=== PATIENT | female | born 1945 | race Caucasian/White ===

== ENCOUNTER 2019-05-06 11:23 | Inpatient (IN) | payer MEDICARE, BC ==
[~2019-05-06 11:23] MED LIST: Dexamethasone 20 MG/5 ML VIAL ONE; Glycopyrrolate 0.2 MG/ML 5 ML SYRINGE ONE; Lidocaine 1% PF 5 ML VIAL ONE; Ondansetron PF 4 MG/2 ML Vial ONE; Rocuronium Bromide 10 MG/ML (10ML VIAL) ONE; Ropivacaine 0.5% HCl/PF (150 MG/30 ML VIAL) ONE; ePHEDrine/0.9% NaCl/PF SYRINGE 50 mg/10 ml ONE
--- NOTE | 2019-05-06 12:24 | RAD ---
AP view of the pelvis INDICATION: Fall with left hip injury COMPARISON: None. FINDINGS: Bones: There is a displaced subcapital left femoral neck fracture. The femoral head fracture componen t is displaced inferiorly and posteriorly relative to the proximal left femoral metaphysis. No additional fractures evident. Hips: There is moderate degenerative arthrosis of the right and left hip. SI joints and symphysis pubis: Normal appearing. Intrapelvic contents: There are moderate vascular calcifications seen involving the visualized vascul ature. IMPRESSION: Displaced subcapital left femoral neck fracture.
--- NOTE | 2019-05-06 12:25 | RAD ---
XR Hip Lt 2-3 View 05/06/2019 11:53 AM INDICATION: Fall with left pain COMPARISON: None. FINDINGS: There is a displaced left subcapital femoral neck fracture. There is moderate degenerative arthrosis of the left hip. There are moderate vascular calcifications seen involving the visualized vasculature. No additional fracture is evident. IMPRESSION: Displaced left subcapital femoral neck fracture.
--- NOTE | 2019-05-06 12:27 | RAD ---
XR Chest 1 View Portable HISTORY: Preop COMPARISON: None. FINDINGS: Heart size appears borderline enlarged for portable technique. A right-sided Mediport dre ter is present. The lungs are clear of infiltrative process. The bones appear demineralized. IMPRESSION: No active intrathoracic disease.
[2019-05-06 12:35] LABS: INR-International Normal Ratio 1.3; PTT 31.2 SEC (22.9-36.1)
[2019-05-06 12:55] LABS: ALT (SGPT) 7 U/L (8-55); AST (SGOT) 19 U/L (5-34); Albumin 2.4 g/dL (3.4-4.8); Alkaline Phosphatase 65 U/L (40-110); Anion Gap 10 mmol/L (10-20); BUN (Urea Nitrogen) 14 mg/dL (9.8-20.1); Bilirubin, Total 1.1 mg/dL (0.2-1.2); Calc. Creatinine Clearance 0 mL/min (70-130); Calcium 7.8 mg/dL (7.8-10.44); Carbon Dioxide 20 mmol/L (23-31); Chloride 108 mmol/L (98-107); Estimated GFR-MDRD 73; Globulin 3.8 g/dL (2.4-3.5); Glucose 89 mg/dL (83-110); Potassium 4.3 mmol/L (3.5-5.1); Protein, Total 6.2 g/dL (6.0-8.3); Sodium 134 mmol/L (136-145)
[2019-05-06] MEDS ORDERED: Acetaminophen 1,000 MG in Premix Bag 1 BAG IVPB SCH (13:30)
--- NOTE | 2019-05-06 13:41 | CT ---
CT BRAIN NONCONTRAST: DATE: 05/06/2019 HISTORY: 73-year-old female status post head trauma from fall COMPARISON: none FINDINGS: There is an approximately 1 x 2 cm small patch of intra-axial moderate hyperdensity in the left periv entricular white matter broadly abutting the left lateral margin of the left lateral ventricle body. There is no subarachnoid, epidural, or subdural hematoma. No calvarial fracture. No mass effect or mi dline shift. No extra-axial fluid collection. No obstructive hydrocephalus. There are chronic ischemic white matter changes in the cerebral white matter. IMPRESSION: 1) small patchy of intra-axial hyperdensity in the left periventricular white matter. Differential di agnosis is primary LAB NURSE lymphoma versus mild traumatic parenchymal hemorrhage. Primary LAB NURSE lymphoma is slightly favored. 2) recommend MRI of brain with and without contrast.
[2019-05-06] MEDS ORDERED: Neomycin-Polymyxin 1 ML AMP ONE (13:42)
[2019-05-06] MEDS ORDERED: Morphine 2 MG/ML SYRINGE ONE (13:46)
[2019-05-06] MEDS ORDERED: CEFAZOLIN 2 GM in Premix Bag 1 BAG IVPB SCH (14:15)
[2019-05-06] MEDS ORDERED: Dextrose 50% Abboject 50 ML SYRINGE SLOW IVP PRN (14:41)
[2019-05-06] MEDS ORDERED: Ondansetron PF 4 MG/2 ML Vial IVP PRN (14:41)
[2019-05-06] MEDS ORDERED: hydrALAZINE 20 MG/ML VIAL SLOW IVP PRN (14:41)
[2019-05-06] MEDS ORDERED: Morphine 2 MG/ML SYRINGE SLOW IVP PRN (14:41)
[2019-05-06] MEDS ORDERED: Dextrose 5% in Water 1,000 ML IV PRN (14:41)
[2019-05-06 14:42] LABS: Hemoglobin 10.3 g/dL (12.0-16.0); Mean Corpuscular HGB CONC 33.1 g/dL (32.0-36.0); Mean Corpuscular Hemoglobin 34.7 pg (27.0-31.0); Mean Platelet Volume 8.7 fL (7.4-10.4); Platelet Count 115 thou/uL (130-400); RBC Distribution Width 15.3 % (11.5-14.5); Red Blood Cell (RBC) Count 2.97 mill/uL (4.20-5.40); White Blood Cell (WBC) Count 2.6 thou/uL (4.8-10.8)
[2019-05-06] MEDS ORDERED: traMADol HCl 50 MG TAB PO PRN (14:45)
[2019-05-06] MEDS ORDERED: Sodium Chloride 0.9% 1,000 ML IV SCH (14:45)
[2019-05-06 14:53] LABS: Magnesium 1.8 mg/dL (1.6-2.6); Phosphorus 2.2 mg/dL (2.3-4.7)
[2019-05-06] MEDS ORDERED: Sodium Phosphate 30 MMOL in Sodium Chloride 0.9% 250 ML 250 ML IVPB SCH (15:00)
[2019-05-06 15:07] LABS: Band 1 % (5-11); Lymphocytes 12 % (21-51); MDiff Complete? YES; Macrocytosis SLIGHT = 6-15 cells (100X) (0-5/hpf); Monocytes 2 % (0-10); Myelocyte 1 % (0-0); Neutrophil 84 % (42-75); Platelet Morphology Comment Appears Decreased; Polychromasia SLIGHT = 2-3 cells (100X) (0-2/hpf)
[2019-05-06] MEDS ORDERED: Dexamethasone 4 mg/ml Vial ONE (15:16)
[2019-05-06] MEDS ORDERED: Fentanyl 100 MCG/2 ML VIAL ONE ×2 (15:16→15:19)
--- NOTE | 2019-05-06 16:32 | HP ---
TRAUMA SURGEON: Dr. Pereira. CONSULTING PHYSICIANS: Dr. Blood and Dr. Sanders. HISTORY OF PRESENT ILLNESS: The patient is a 73-year-old female, who presented to the emergency department via EMS. Family reports that the patient has had left-sided hip pain and stopped ambulating yesterday. She did have a fall 1 week ago while on Xarelto. She did stop Xarelto 1 to 2 days after the fall and has a history of dementia. The patient complained of left-sided hip pain. She does have a history of ovarian cancer and has been taking oral chemotherapy medications. Since the start of that medication in February, the patient's family reported a significant decline in her mentation. She has also not been eating or drinking well. They did discuss with their oncologist, who stopped the medications last week along with Xarelto. At the time of my evaluation, the patient complained of left hip pain and followed commands very well. She does know her family members, but does not know more complicated questions and does not participate well in conversations. The patient was ambulatory before the fall and started using a walker after the fall, but refused to get up out of bed, starting yesterday. REVIEW OF SYSTEMS: All additional 10-point review of systems negative except as indicated above. PAST MEDICAL HISTORY: Ovarian cancer. PAST SURGICAL HISTORY: Hysterectomy, MediPort placement in the right chest wall, and right knee replacement. SOCIAL HISTORY: The patient does not have a history of tobacco, drug, or alcohol use. She lives at home with her and her daughter is also a media relations coordinator. MEDICATIONS: 1. Fluoxetine. 2. Megestrol. 3. MiraLAX. 4. Ipwy-ntn-wlbnoto Advil. ALLERGIES: NO KNOWN DRUG ALLERGIES. PHYSICAL EXAMINATION: VITAL SIGNS: The patient is afebrile. Hemodynamically stable. Not tachycardic. She is saturating greater than 92% on room air. HEART: She has a regular rate and rhythm on the monitor. PRIMARY SURVEY: Airway intact. Adequate breath sounds bilaterally. 2+ pulses in bilateral radials, femorals, and DPs. GCS is 14, -1 for confusion. This is her baseline. Motor and sensation are intact. No laceration, bruising, or external bleeding. She does have obvious deformity to the left hip. SECONDARY SURVEY: HEAD: Normocephalic and atraumatic. No gross palpable skull deformities or tenderness. EYES: Pupils 3-2, equal, and reactive to light bilaterally. ENT: No hemotympanum. No epistaxis. No septal hematoma. Midface stable to manipulation. No blood in the oropharynx. Dentition is intact. No anterior neck injury/crepitus/tenderness. C-SPINE: No step-offs or deformities. Nontender. C-collar not in place. CHEST: Nontender. No crepitus. No abrasions or ecchymosis. Equal chest movement. Mediport to right chest wall. ABDOMEN: Soft, nontender, and nondistended. PELVIS: Stable to palpation. Nontender. No abrasions or ecchymosis. RECTAL: Deferred. GENITOURINARY: Deferred. EXTREMITIES: Left-sided hip deformity. No abrasions or ecchymosis noted. 2+ pulses in bilateral radials, femorals, and DPs. BACK/SPINE: No step-offs, deformities, or tenderness to palpation of the thoracic or lumbar spine. No abrasions or ecchymosis noted. NEUROLOGIC: Generalized weakness throughout, but equal clinic nurse and plantar flexion and dorsiflexion bilaterally. GCS is 14, -1 for confusion. Gross normal sensation x4 extremities. LABORATORY DATA: White count 2.6, hemoglobin 10.3, hematocrit 31.2, and platelets 115. INR 1.3. Sodium 134, potassium 4.3, chloride 108, bicarb 20, BUN 14, creatinine 0.78, glucose 89, phosphorus 2.2, and magnesium 1.8. DIAGNOSTIC FINDINGS: X-ray of the pelvis demonstrates displaced subcapital left femoral neck fracture. X-ray of the left hip demonstrates displaced left subcapital femoral neck fracture. Chest x-ray demonstrates no acute intrathoracic disease. CT of the brain demonstrates small patchy of intra-axial hyperdensity in the left periventricular white matter. Differential diagnosis is primary MILK HOUSE WORKER lymphoma versus mild traumatic parenchymal hemorrhage. Primary MILK HOUSE WORKER lymphoma is slightly favored. Recommend MRI brain with and without contrast. ASSESSMENT: 1. Status post fall 1 week ago. 2. Acute hyponatremia and hypophosphatemia. 3. Deconditioning. 4. Failure to thrive. 5. Left femoral neck fracture. 6. MILK HOUSE WORKER lymphoma versus traumatic parenchymal hemorrhage. 7. Acute traumatic pain. 8. History of ovarian cancer, recently stopped treatment. PLAN: The patient will be admitted to the Trauma Service and go to the regular nursing floor. Orthopedic Surgery has been consulted and will take the patient to the OR today. Neurosurgery has also been consulted for the CT scan results. They report that there is no acute concern and that the patient should receive MRI either later in the hospital stay or upon postop followup. They also do report that it is okay to start 81 mg aspirin b.i.d. for DVT prophylaxis when appropriate. The patient appears mildly dehydrated and did receive a 500 mL bolus of normal saline in the emergency department. We are also going to complete a UA. Postoperatively, she will work with Physical and Occupational Therapy and will likely need placement at a rehab facility or a [facility]p facility. She receive sodium phosphate replacement. This patient was discussed with Dr. Pereira before this dictation. Job ID: [id number]
--- NOTE | 2019-05-06 17:24 | RAD ---
EXAM: XR Pelvis AP STANDARD PROVIDED CLINICAL HISTORY: Postop COMPARISON: 05/06/2019 FINDINGS: Interval postoperative changes of left hip arthroplasty are demonstrated. Associated soft tissue gas. Cutaneous jermaine are seen. IMPRESSION: As above.
--- NOTE | 2019-05-06 17:24 | RAD ---
EXAM: XR Hip Lt 1 View PROVIDED CLINICAL HISTORY: Postop COMPARISON: 05/06/2019 FINDINGS: Interval postoperative changes of left hip arthroplasty. Associated soft tissue gas. Cutaneous staple s are seen. IMPRESSION: As above.
[2019-05-06] MEDS: Acetaminophen 500 MG TAB PO SCH (19:41)
--- NOTE | 2019-05-06 20:50 | PRG ---
DATE OF SERVICE: 05/06/2019 SUBJECTIVE: This is a 73-year-old female, who sustained a left femoral neck fracture approximately a week ago. The patient is postop earlier today with Dr. Blood for repair. The patient is currently sleeping on the hospital bed in the surgical floor. The patient has not attempted to eat anything postop and has taken a very little fluids. The patient's family members are at bedside. The patient arouses easily to voice. The patient denies any pain at this time. The patient does have a past medical history of dementia. OBJECTIVE: VITAL SIGNS: Stable, afebrile. GENERAL: Elderly female, frail appearing, resting comfortably, no respiratory distress. RESPIRATORY: Equal chest rise and fall, bilateral breath sounds clear, respirations are even and unlabored. ASSESSMENT: 1. Status post fall one week ago. 2. Acute hyponatremia and hypophosphatemia. 3. Deconditioning. 4. Failure to thrive. 5. Left femoral neck fracture status post repair. 6. 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 7. Acute traumatic pain. 8. History of ovarian cancer, recently. Stopped treatment. PLAN: Continue comfort and supportive care. We will replace electrolytes as needed. We will continue to monitor the patient's urinary output. If the patient does not take in fluids or has a decrease in urinary output, we will place the patient on maintenance IV fluids. The patient did receive a normal saline bolus earlier today. We will repeat labs in the morning. We will have the patient work with Physical and Occupational Therapy in the morning. The patient will need placement to a rehab or senior living facility once ready for discharge. Plan was discussed with the patient and family, who agree. Job ID: [id number]
[2019-05-06] MEDS: CEFAZOLIN 2 GM in Premix Bag 1 BAG IVPB SCH (21:20)
[2019-05-06] MEDS: Famotidine/PF 20 mg/2ml Vial SLOW IVP SCH (21:20)
[2019-05-06] MEDS: Senokot S 8.6-50 MG TAB PO SCH (21:21)
[2019-05-06 21:58] VITALS: BMI 24.7
[2019-05-07] MEDS: Acetaminophen 500 MG TAB PO SCH ×5 (00:15→23:00)
[2019-05-07] MEDS: Ibuprofen 200 MG TAB PO SCH ×4 (00:15→19:36)
--- NOTE | 2019-05-07 01:17 | CON ---
DATE OF CONSULTATION: 05/06/2019 HISTORY OF PRESENT ILLNESS: Ms. Rey is a 73-year-old female, who presented to the emergency department for evaluation of left hip pain and decreased mobility after fall that occurred one week ago. Family provides majority of history for this patient. They states that the patient has not been ambulating since the fall. The patient was on Xarelto prior to the fall, however, this has since been stopped. The family also notes that the patient has not been eating or drinking well over the last several days to weeks. The patient has a history of ovarian cancer, for which she was previously taking oral chemotherapy, however, this was stopped because she was having decline in her mentation. The patient has generalized weakness, but no focal neuro deficit aside from not moving her left lower extremity secondary to her left femoral neck fracture. PHYSICAL EXAMINATION: NEUROLOGIC: The patient is awake, alert, and for the most part appropriately respond to questions. The patient intermittently answers questions when asked, with the tendency to do so more when her family repeats the question asked by myself. The patient was unable to state the month, year, or her current location. Cranial nerves 2 through 12 are grossly intact. Pupils are equal, round, and reactive to light. Extraocular movements were intact. The patient exhibits generalized weakness of her upper and lower extremity. She has 4/5 strength throughout her bilateral upper extremity myotomes. She also has 4/5 strength in her right lower extremity. She is able to bend her right knee up without difficulty. I do not test the strength in her left lower extremity due to her left femoral neck fracture. Did note that her left leg was externally rotated. The patient was able to move her toes and foot on the left. The patient appears generally weak and cachetic. Gait was not assessed. IMPRESSION/DIAGNOSES: 1. Status post fall one week ago. 2. On Xarelto, stopped after the fall. 3. Left femoral neck fracture. 4. 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 5. Deconditioning. PLAN: I have discussed this case and imaging with Dr. Sanders. From a neurosurgical standpoint, the patient is clear to proceed with left hip surgery today. Both the Trauma and Orthopedic Teams were notified of this. I spoke with Dr. Blood in the emergency department and let him know that from a neurosurgical standpoint we are fine with the patient having surgery on her hip today. The patient may be placed on 81 mg aspirin postoperatively for DVT prophylaxis. There is no need for neurosurgical intervention at this time. We will follow up with the patient on an outpatient basis in 1 to 2 weeks after she has time to recover from her surgery. At this time, we will complete an MRI of the brain with and without contrast to further evaluate the lesion seen on CT today. When the family was notified of this plan, they requested the patient complete the MRI while she is in the hospital given the fact that they live over an hour away. We will be fine with this plan as long as the patient can tolerate, remaining still for the 45-minute duration of the MRI after she has had surgery. Perhaps over the weekend, the Trauma and Orthopedic Team can determine if the patient will be able to tolerate MRI, or if it will need to be done outpatient. We will defer this decision to Trauma and Orthopedics. Nonetheless, we will follow up with the patient in clinic in the next 1 to 2 weeks. Please call sooner with any questions or concerns. This was a 50-minute initial patient encounter, in which greater than 50% of the time was spent in review of records, imaging, evaluation of the patient, examination, and formulations of plan. The remaining time was spent in counseling and coordination of care. Job ID: [id number]
[2019-05-07] MEDS: CEFAZOLIN 2 GM in Premix Bag 1 BAG IVPB SCH (05:12)
[2019-05-07 05:33] LABS: #Lymphocytes 0.3 thou/uL (1.20-3.40); #Monocytes 0.2 thou/uL (0.11-0.59); #Neutrophils 3.3 thou/uL (1.40-6.50); %Eosinophils 0.2 % (0.0-10.0); %Lymphocytes 7.9 % (21.0-51.0); %Monocytes 5.9 % (0.0-10.0); Hemoglobin 8.4 g/dL (12.0-16.0); Mean Corpuscular HGB CONC 32.5 g/dL (32.0-36.0); Mean Corpuscular Hemoglobin 33.3 pg (27.0-31.0); Mean Platelet Volume 8.9 fL (7.4-10.4); Platelet Count 97 thou/uL (130-400); RBC Distribution Width 15.2 % (11.5-14.5); Red Blood Cell (RBC) Count 2.52 mill/uL (4.20-5.40); White Blood Cell (WBC) Count 3.9 thou/uL (4.8-10.8)
[2019-05-07 06:17] LABS: Anion Gap 12 mmol/L (10-20); BUN (Urea Nitrogen) 18 mg/dL (9.8-20.1); Calc. Creatinine Clearance 62 mL/min (70-130); Calcium 7.9 mg/dL (7.8-10.44); Carbon Dioxide 20 mmol/L (23-31); Chloride 108 mmol/L (98-107); Estimated GFR-MDRD 71; Glucose 127 mg/dL (83-110); Magnesium 1.8 mg/dL (1.6-2.6); Phosphorus 5.5 mg/dL (2.3-4.7); Potassium 4.3 mmol/L (3.5-5.1); Sodium 136 mmol/L (136-145)
[2019-05-07] MEDS ORDERED: Magnesium 2 GM/50 ML 2 GM in Premix Bag 1 BAG IVPB SCH (07:15)
[2019-05-07] MEDS: Polyethylene Glycol 3350 17 GM Packet PO SCH (08:55)
[2019-05-07] MEDS: Famotidine/PF 20 mg/2ml Vial SLOW IVP SCH ×2 (08:55→19:36)
[2019-05-07] MEDS: Senokot S 8.6-50 MG TAB PO SCH ×2 (08:55→19:36)
[2019-05-07] MEDS: FLUoxetine HCl 20 MG CAP PO SCH (08:55)
[2019-05-07] MEDS: Megestrol Acetate 800 MG/20 ML UDCUP PO SCH (08:55)
--- NOTE | 2019-05-07 09:21 | PDOC.GSPN ---
Surgery Progress Note: Subj - Subjective Narrative: Feels good, denies pain. Hasn't been up w PT yet. Eating well. Pleasant and alert, answering questions appropriately.Mental status at baseline per sister. Surgery Progress Note: Obj - Vital signs Vital signs: Vital Signs - Most Recent Temp Pulse Resp BP Pulse Ox 98.5 F 62 18 103/60 95 05/07/19 07:18 05/07/19 07:18 05/07/19 07:18 05/07/19 07:18 05/07/19 07:18 - Physical Exam General: cachectic Neck: no lymphadectomy, no masses, trachea midline Cardiovascular: regular rate and rhythm, no murmur Respiratory: clear to auscultation, normal expansion, normal respiratory effort Abdomen: soft, non tender, nondistended (OR dressings in place. No LE rotation. No edema, normal pedal pulses, 4/5 foot dorsiflexion/plantarflexion bilaterally , nl sensation to light touch) Surgery Progress Note: Results - Labs Result Diagrams: 05/07/19 05:01 05/07/19 05:01 Lab results: Laboratory Results - last 24 hr 05/07/19 05/07/19 05:01 05:01 WBC 3.9 L RBC 2.52 L Hgb 8.4 L Hct 25.8 L MCV 102.0 H MCH 33.3 H MCHC 32.5 RDW 15.2 H Plt Count 97 L MPV 8.9 Neutrophils % 86.0 H Neutrophils % (Manual) Not Reportable Lymphocytes % 7.9 L Monocytes % 5.9 Eosinophils % 0.2 Basophils % 0.0 Neutrophils # 3.3 Lymphocytes # 0.3 L Monocytes # 0.2 Eosinophils # 0.0 Basophils # 0.0 Sodium 136 Potassium 4.3 Chloride 108 H Carbon Dioxide 20 L Anion Gap 12 BUN 18 Creatinine 0.80 Estimated GFR (MDRD) 71 Glucose 127 H Calcium 7.9 Phosphorus 5.5 H Magnesium 1.8 Surgery Progress Note: A/P - Plan Plan: Doing well status post ORIF left femoral neck fracture. Awaiting PT, rehab/ placement plan. Pt lives w , w other family memebers nearby; family tentatively plans short stay at [facility] for rehab before returning home w . Renal function stable. Decreased H/H consistent w post-op state and likely pre- existing anemia related to ovarian cancer and cachexia. No new traumatic injuries identified. Continue current management.
[2019-05-07 09:24] LABS: Bilirubin Negative (Negative); Blood, Urine 2+ (Negative); Clarity Clear (Clear); Glucose, Urine (Dipstick) Normal (Negative); Leukocyte 500 Leu/uL (Negative); Nitrite Negative (Negative); Protein, Urine (Dipstick) 30 mg/dL (Neg-Trace); Urobilinogen 3 mg/dL (Less than 2); WBC/HPF Greater than 50 HPF (0-3)
[2019-05-07 09:26] LABS: Bacteria/HPF 1+ HPF (None Seen)
--- NOTE | 2019-05-07 10:13 | PRG ---
DATE OF SERVICE: 05/07/2019 Ms. Rey is a 73-year-old woman, admitted for hip fracture, who underwent fixation yesterday. She was also found to have hyperdensity in the region of the left figueredo radiata and periventricular region. It is difficult to know what this is, maybe lymphoma. Nevertheless, we will get an MRI of the brain without and with contrast. She otherwise is neurologically intact. The MRI will be done during her hospital tenure here. Job ID: [id number]
--- NOTE | 2019-05-07 14:03 | OP ---
DATE OF PROCEDURE: 05/06/2019 PROCEDURE PERFORMED: Left hip hemiarthroplasty, bipolar. PREOPERATIVE DIAGNOSIS: Left femoral neck fracture. POSTOPERATIVE DIAGNOSIS: Left femoral neck fracture. COMPLICATIONS: None. ESTIMATED BLOOD LOSS: 100 mL. ANESTHESIA: General plus local. SPINNING AND WINDING SUPERVISOR: Michael Rueda PA-C IMPLANTS: DePuy bipolar hemiarthroplasty size 6 Mary Alice stem press-fit, size 45 bipolar head, +8.5 neck length. INDICATIONS FOR PROCEDURE: Ms. Rey is a 73-year-old female, who fell and fractured her left hip. She has been indicated for hemiarthroplasty of the hip to restore the ability to mobilize, promote pain relief, and prevent complications of prolonged bedrest. Risks have been reviewed, which did include dislocation, instability, neurovascular injury, DVT, and others. DESCRIPTION OF PROCEDURE: Ms. Rey was identified in the preoperative holding area. Her correct extremity was marked. She was carried to the operating room. She was positioned supine. General anesthesia was induced. A multidisciplinary time-out was performed. The left lower extremity was prepped and draped in a sterile fashion. We began the procedure by a posterior approach to the hip. We dissected down through the subcutaneous tissues to the fascia, which was opened. We then exposed the short external rotators and capsule of the hip. These were subperiosteally divided from the femur. We then removed the broken femoral head and performed a new osteotomy of the femoral neck. At this point, we cleared the acetabulum off bony fragments. We then prepared the femoral canal. We reamed and broached up to a size 6. This gave a good fit and fill. We trialed off our size 6 stem. A +8.5 length was appropriate for stability. The patient had good range of motion with no instability. We removed the trial components. We then impacted our final components and reduced the hip. We closed the short external rotators and capsule with #5 Ethibond suture. We then closed the fascia and completed a layered closure. A sterile dressing was applied. The patient was taken to recovery room in good condition without complication. Job ID: [id number]
[2019-05-07] MEDS ORDERED: Enoxaparin Sodium 30 MG/0.3 ML SYRINGE SC SCH (21:00)
--- NOTE | 2019-05-07 23:30 | PRG ---
DATE OF SERVICE: SUBJECTIVE: This is a 73-year-old female, who sustained a left femoral neck fracture approximately a week ago. Patient is postop day #1 status post repair. Patient is currently resting comfortably in hospital bed and arouses easily. Patient reports that her pain is well controlled and voices no complaints at this time. OBJECTIVE: VITAL SIGNS: Stable, afebrile. GENERAL: Elderly female, frail appearing, resting comfortably, in no acute distress. RESPIRATORY: Equal chest rise and fall, bilateral breath sounds clear. Respirations are even and nonlabored. ASSESSMENT: 1. Status post fall one week ago. 2. Left femoral neck fracture, postop day 1. 3. Deconditioning. 4. Failure to thrive. 5. Acute traumatic pain. 6. Postop anemia. 7. 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 8. History of ovarian cancer, recently stopped treatment. PLAN: Continue comfort and supportive care. We will place patient on iron and vitamin C due to postop anemia. Continue to have patient work with Physical Therapy. Patient is pending placement to a alf facility. Job ID: [id number]
[2019-05-08] MEDS ORDERED: Sodium Chloride 0.9% 1,000 ML IV SCH (00:01)
[2019-05-08] MEDS: Ibuprofen 200 MG TAB PO SCH (05:50)
[2019-05-08] MEDS: Acetaminophen 500 MG TAB PO SCH ×4 (05:50→23:39)
[2019-05-08 06:01] LABS: #Lymphocytes 0.4 thou/uL (1.20-3.40); #Monocytes 0.2 thou/uL (0.11-0.59); #Neutrophils 2.3 thou/uL (1.40-6.50); %Eosinophils 0.6 % (0.0-10.0); %Lymphocytes 14.7 % (21.0-51.0); %Monocytes 8.2 % (0.0-10.0); %Neutrophils 76.4 % (42.0-75.0); Hemoglobin 8.7 g/dL (12.0-16.0); Mean Corpuscular HGB CONC 32.9 g/dL (32.0-36.0); Mean Platelet Volume 9.6 fL (7.4-10.4); Platelet Count 121 thou/uL (130-400); RBC Distribution Width 15.3 % (11.5-14.5); Red Blood Cell (RBC) Count 2.57 mill/uL (4.20-5.40)
[2019-05-08 06:38] LABS: Anion Gap 10 mmol/L (10-20); BUN (Urea Nitrogen) 31 mg/dL (9.8-20.1); Calc. Creatinine Clearance 37 mL/min (70-130); Calcium 8.2 mg/dL (7.8-10.44); Carbon Dioxide 21 mmol/L (23-31); Chloride 106 mmol/L (98-107); Estimated GFR-MDRD 39; Glucose 103 mg/dL (83-110); Magnesium 2.4 mg/dL (1.6-2.6); Phosphorus 3.7 mg/dL (2.3-4.7); Potassium 4.3 mmol/L (3.5-5.1); Sodium 133 mmol/L (136-145)
[2019-05-08] MEDS ORDERED: Sodium Phosphate 15 MMOL in Sodium Chloride 0.9% 250 ML 250 ML IVPB SCH (07:15)
[2019-05-08] MEDS: Polyethylene Glycol 3350 17 GM Packet PO SCH (08:54)
[2019-05-08] MEDS: Senokot S 8.6-50 MG TAB PO SCH ×2 (08:54→20:38)
[2019-05-08] MEDS ORDERED: Sodium Chloride 0.9% 500 ML IV SCH (10:45)
--- NOTE | 2019-05-08 11:02 | PRG ---
DATE OF SERVICE: 05/08/2019 SUBJECTIVE: The patient was seen this morning standing up at bedside with no signs of acute distress. She had just voided and had a bowel movement. Family at bedside, reported no acute events and that they feel the patient's overall condition and alertness is much improved. The patient had no complaints. She is pending MRI with and without contrast today for further evaluation of possible central nervous system lymphoma. OBJECTIVE: VITAL SIGNS: Temperature 98.5, pulse 73, respirations 20, oxygen saturation 98% on room air, blood pressure 114/74. GENERAL: A frail-appearing elderly female, lying in bed with no signs of acute distress. PULMONARY: Equal chest rise and fall. Clear breath sounds bilaterally. No signs of acute respiratory distress. CARDIAC: Regular rate and rhythm. No murmurs, gallops, or rubs. GI: Abdomen is soft, nontender, nondistended. EXTREMITIES: 2+ pulses in all extremities. Gross motor and sensation intact. No significant swelling noted. LABORATORY FINDINGS: White count 3.0, hemoglobin 8.7, hematocrit 26.6, platelets 121. Sodium 133, potassium 4.3, chloride 104, bicarb 21, BUN 31, creatinine 1.32, glucose 103, phosphorus 3.7, magnesium 2.4. DIAGNOSTIC FINDINGS: There are no new diagnostic findings to report. ASSESSMENT: 1. Status post fall one week before presentation. 2. Left femoral neck fracture, status post repair. 3. Pancytopenia, chronic. 4. 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 5. Acute kidney injury. 6. History of ovarian cancer and dementia. PLAN: The patient is n.p.o. with normal saline at 70 an hour pending MRI with anesthesia. Post MRI, she will receive a regular diet and we will discontinue IV fluid. She will receive a one time 500 mL bolus of normal saline for her acute kidney injury. She will also receive 15 millimoles of sodium phosphate for hyponatremia and hypophosphatemia. She will continue to work with Physical and Occupational Therapy. Plan is to follow up with Neurosurgery outpatient for MRI results. We will repeat blood work tomorrow. She will need placement at a [place] [facility] due to her physical decompensation. This patient was discussed with Dr. Pérez before this dictation. Job ID: [id number]
[2019-05-08] MEDS ORDERED: Fentanyl 100 MCG/2 ML VIAL ONE (11:17)
--- NOTE | 2019-05-08 12:54 | MRI ---
MRI BRAIN WITH AND WITHOUT IV CONTRAST: HISTORY: Left periventricular lesion. CORRELATION: CT brain from 05/06/2019. FINDINGS: There is a 2 cm lesion in the left paraventricular white matter which has areas of high T1 signal as well as post contrast enhancement and restricted diffusion. A tiny focus of restricted diffusion is seen in the posteromedial aspect of the left parietal lobe. I nferior to this is a tiny focus of post contrast enhancement (image 77, series 8). There are changes of cortical atrophy and chronic small vessel ischemic disease. The ventricular size is appropriate and the basilar cisterns are patent. No midline shift or abnormal extraaxial fluid co llections are noted. There is a small right hemispheric subdural hematoma with high T1 and T2 signal. IMPRESSION: 1. Tiny acute lacunar infarction in the left parietal lobe. 2. Tiny enhancing focus in the posteromedial aspect of the left parieto-occipital lobe, which could r epresent a tiny metastatic focus. 3. Left periventricular lesion may be due to malignancy/metastasis, vascular malformation or subacute infarction. A follow up exam is recommended in 4 weeks. 4. Small subacute right-sided subdural hematoma. POS: [facility]
[2019-05-08] MEDS: Megestrol Acetate 800 MG/20 ML UDCUP PO SCH (13:11)
[2019-05-08] MEDS: Ascorbic Acid 500 mg Chewable Tablet PO SCH ×2 (13:12→20:29)
[2019-05-08] MEDS: Ferrous Sulfate 325 MG TAB PO SCH ×2 (13:12→17:46)
[2019-05-08] MEDS: FLUoxetine HCl 20 MG CAP PO SCH (13:12)
[2019-05-08] MEDS: Famotidine/PF 20 mg/2ml Vial SLOW IVP SCH (14:40)
[2019-05-08] MEDS: traMADol HCl 50 MG TAB PO PRN (17:48)
[2019-05-08] MEDS: Sulfameth/Trimethoprim DS 800-160mg TAB PO SCH (20:28)
--- NOTE | 2019-05-08 21:47 | PRG ---
DATE OF SERVICE: 05/08/2019 SUBJECTIVE: The patient was seen during evening rounds, resting comfortably in hospital bed. The patient arouses easily to voice. The patient reports that her pain is well controlled at this time. The patient voices no complaints. OBJECTIVE: VITAL SIGNS: Stable, afebrile. GENERAL: Well-appearing elderly female, lying in hospital bed, in no acute distress. PULMONARY: Equal chest rise and fall, bilateral breath sounds clear. EXTREMITIES: Moves all extremities, no pedal edema, distal pulses intact. ASSESSMENT: 1. Status post fall one week ago before presentation. 2. Left femoral neck fracture, postop day #2, status post repair. 3. Pancytopenia, chronic. 4. 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 5. Acute kidney injury, postop. 6. History of ovarian cancer and dementia. PLAN: Continue supportive care. The patient did receive IV fluids earlier today. We will continue to monitor urinary output and replace electrolytes as needed. We will repeat lab work in the morning to see if the patient's acute kidney injury has improved with fluids. We will continue to have Physical and Occupational Therapy work with the patient. The patient is pending placement to detention facility due to her physical decompensation. Job ID: [id number]
[2019-05-09 05:46] LABS: #Lymphocytes 0.4 thou/uL (1.20-3.40); #Monocytes 0.2 thou/uL (0.11-0.59); #Neutrophils 1.6 thou/uL (1.40-6.50); %Eosinophils 0.8 % (0.0-10.0); %Lymphocytes 17.3 % (21.0-51.0); %Monocytes 9.1 % (0.0-10.0); %Neutrophils 72.9 % (42.0-75.0); Hemoglobin 7.9 g/dL (12.0-16.0); Mean Corpuscular HGB CONC 32.8 g/dL (32.0-36.0); Mean Corpuscular Hemoglobin 33.7 pg (27.0-31.0); Mean Platelet Volume 9.5 fL (7.4-10.4); Platelet Count 116 thou/uL (130-400); RBC Distribution Width 15.5 % (11.5-14.5); Red Blood Cell (RBC) Count 2.33 mill/uL (4.20-5.40); White Blood Cell (WBC) Count 2.2 thou/uL (4.8-10.8)
[2019-05-09] MEDS: Acetaminophen 500 MG TAB PO SCH ×2 (05:52→11:33)
[2019-05-09 05:57] LABS: Anion Gap 11 mmol/L (10-20); BUN (Urea Nitrogen) 31 mg/dL (9.8-20.1); Calc. Creatinine Clearance 48 mL/min (70-130); Calcium 7.6 mg/dL (7.8-10.44); Carbon Dioxide 19 mmol/L (23-31); Cardiac Risk 6.9 (Less than 4.5); Chloride 108 mmol/L (98-107); Cholesterol 90 mg/dl (< 200 Desired); Estimated GFR-MDRD 52; Glucose 84 mg/dL (83-110); HDL Cholesterol 13 mg/dL (>60 Neg Risk); LDL Cholesterol, Calculated 66 mg/dL; Magnesium 2.2 mg/dL (1.6-2.6); Phosphorus 3.1 mg/dL (2.3-4.7); Potassium 4.1 mmol/L (3.5-5.1); Sodium 134 mmol/L (136-145); Triglycerides 56 mg/dL (Less than 150)
[2019-05-09] MEDS ORDERED: Sodium Phosphate 15 MMOL in Sodium Chloride 0.9% 250 ML 250 ML IVPB SCH (07:30)
[2019-05-09] MEDS: Senokot S 8.6-50 MG TAB PO SCH ×2 (08:48→20:11)
[2019-05-09] MEDS: Ascorbic Acid 500 mg Chewable Tablet PO SCH ×2 (08:48→20:11)
[2019-05-09] MEDS: Megestrol Acetate 800 MG/20 ML UDCUP PO SCH (08:48)
[2019-05-09] MEDS: Sulfameth/Trimethoprim DS 800-160mg TAB PO SCH ×2 (08:48→20:11)
[2019-05-09] MEDS: FLUoxetine HCl 20 MG CAP PO SCH (08:48)
[2019-05-09] MEDS: Ferrous Sulfate 325 MG TAB PO SCH ×2 (08:48→17:39)
[2019-05-09] MEDS: Polyethylene Glycol 3350 17 GM Packet PO SCH (08:49)
--- NOTE | 2019-05-09 10:24 | PRG ---
DATE OF SERVICE: 05/09/2019 SUBJECTIVE: The patient was seen this morning sitting up in bed. She was resting comfortably and asleep. Family not at bedside. Nursing reported no acute events. The patient does not appear to be in any pain. Voiding and having bowel movements. OBJECTIVE: VITAL SIGNS: Temperature 98.1, pulse 66, respirations 18, oxygen saturation 98% on room air, blood pressure 116/67. GENERAL: Well-appearing, elderly female, lying in bed with no signs of acute distress. PULMONARY: Equal chest rise and fall. Clear breath sounds bilaterally with no signs of acute respiratory distress. CARDIAC: Regular rate and rhythm. No murmurs, gallops, or rubs. GI: Abdomen is soft, nontender, nondistended. EXTREMITIES: 2+ pulses in all extremities. Gross motor and sensation are intact. No significant swelling noted. LABORATORY FINDINGS: White count 2.2, hemoglobin 7.9, hematocrit 23.9, platelets 116. Sodium 134, potassium 4.1, chloride 108, bicarb 19, BUN 31, creatinine 1.04, glucose 89, phosphorus 3.1, magnesium 2.2. Triglycerides 56, cholesterol 90, LDL cholesterol 66, HDL cholesterol 13. DIAGNOSTIC FINDINGS: MRI of the brain completed yesterday with and without contrast demonstrates tiny acute lacunar infarction in the left parietal lobe. Tiny enhanced foci in the posteromedial aspect of the left parieto-occipital lobe, which could represent a tiny metastatic focus. Left periventricular lesion, is suspicious for central nervous system lymphoma. Small subacute right-sided subdural hematoma. ASSESSMENT: 1. Status post fall from standing, 1 week before presentation. 2. Left femoral neck fracture, status post repair. 3. Tiny acute lacunar infarction. 4. Possible metastatic foci in the left kris-occipital lobe of the brain. 5. 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 6. Subacute small right subdural hematoma. 7. Acute kidney injury, resolved. 8. Urinary tract infection, uncomplicated - Escherichia coli. 9. Pancytopenia, chronic. 10. History of ovarian cancer and dementia. 11. Acute hypophosphatemia. 12. Physical decompensation and failure to thrive. PLAN: Continue current regular diet with Ensure. We will try to maximize the patient's nutritional intake. Her appetite has improved and her intake has improved since admission; however, it is still poor. She is getting iron and vitamin C. Continue physical and occupational therapy and pain management. The patient is pending placement at a snf facility. Neurosurgery Team of Dr. Sanders had previously reported it was appropriate to place the patient on 81 mg of aspirin b.i.d. while further neuro-imaging was being completed. However, yesterday after the subacute small right subdural hematoma was found, the on-call physician, Dr. Mcclain, was contacted about aspirin and he reported that we should discontinue it. Trauma Team will touch base with Dr. Sanders on Friday when he is back records section supervisor to reaffirm. The patient to receive an echo today for workup of lacunar infarct. Lipid panel was completed and normal. EKG demonstrated normal sinus rhythm. The patient does not have a history of arrhythmia. Urinary tract infection has grown E coli and is currently being treated with 3 days of Bactrim. We will follow up sensitivities when they result. The patient will receive IV sodium phos replacement today. We will hold chemo DVT prophylaxis at this time. Job ID: [id number]
[2019-05-09] MEDS ORDERED: Dextrose 50 % In Water 50 ML SYRINGE ONE (11:19)
[2019-05-09] MEDS: D5 1/2 NS w/20 mEq KCL 1,000 ML IV SCH (11:31)
--- NOTE | 2019-05-09 13:09 | CT ---
CT head noncontrast HISTORY: Subdural hematoma. Follow-up. COMPARISON: 05/06/2019. FINDINGS: The thin lentiform slightly hyperdense fluid collection along the right posterior occipitop arietal inner calvarium is unchanged in appearance. No new areas of hemorrhage. The hemispherical small hyperdense lesion within the left frontal periventricular area is stable. Dif fuse cortical atrophy and chronic ischemic small vessel disease again demonstrated. IMPRESSION: Stable CT appearance, including the very small right parieto-occipital subdural hematoma. No new abnormalities.
--- NOTE | 2019-05-09 22:16 | PRG ---
DATE OF SERVICE: 05/09/2019 SUBJECTIVE: The patient was seen during evening rounds, resting comfortably. Family reports multiple visitors today and the patient became extremely tired from visiting. The patient continues to have a decreased appetite. OBJECTIVE: VITAL SIGNS: Stable, afebrile. GENERAL: Elderly female, frail appearing, lying in hospital bed, in no acute distress. PULMONARY: Equal chest rise and fall. No acute respiratory distress. ASSESSMENT: 1. Status post fall from standing, one week before presentation. 2. Left femoral neck fracture, status post repair. 3. Tiny acute lacunar infarction. 4. Possible metastatic foci of the left kris-occipital lobe of the brain. 5. 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 6. Subacute small subdural hematoma. 7. Acute kidney injury, resolved. 8. Urinary tract infection, uncomplicated. 9. Pancytopenia, chronic. 10. History of ovarian cancer and dementia. 11. Physical decompensation of failure to thrive. PLAN: Continue regular diet and supplement with Ensure. Continue supportive care. Continue physical and occupational therapy. Job ID: [id number]
[2019-05-10] MEDS: D5 1/2 NS w/20 mEq KCL 1,000 ML IV SCH ×3 (00:40→20:35)
[2019-05-10 04:56] LABS: #Lymphocytes 0.5 thou/uL (1.20-3.40); #Monocytes 0.2 thou/uL (0.11-0.59); #Neutrophils 1.6 thou/uL (1.40-6.50); %Basophils 0.5 % (0.0-1.0); %Eosinophils 1.6 % (0.0-10.0); %Lymphocytes 19.9 % (21.0-51.0); %Monocytes 9.2 % (0.0-10.0); %Neutrophils 68.9 % (42.0-75.0); Hemoglobin 9.3 g/dL (12.0-16.0); Mean Corpuscular HGB CONC 33.1 g/dL (32.0-36.0); Mean Corpuscular Hemoglobin 33.4 pg (27.0-31.0); Platelet Count 110 thou/uL (130-400); RBC Distribution Width 15.8 % (11.5-14.5); Red Blood Cell (RBC) Count 2.79 mill/uL (4.20-5.40); White Blood Cell (WBC) Count 2.3 thou/uL (4.8-10.8)
[2019-05-10 05:02] LABS: Anion Gap 9 mmol/L (10-20); BUN (Urea Nitrogen) 25 mg/dL (9.8-20.1); Calc. Creatinine Clearance 54 mL/min (70-130); Calcium 7.5 mg/dL (7.8-10.44); Carbon Dioxide 22 mmol/L (23-31); Chloride 108 mmol/L (98-107); Estimated GFR-MDRD 60; Glucose 94 mg/dL (83-110); Magnesium 2.2 mg/dL (1.6-2.6); Phosphorus 2.5 mg/dL (2.3-4.7); Potassium 3.6 mmol/L (3.5-5.1); Sodium 135 mmol/L (136-145)
[2019-05-10] MEDS ORDERED: Potassium Phosphate 30 MMOL in Sodium Chloride 0.9% 250 ML 250 ML IVPB SCH (07:15)
[2019-05-10] MEDS: Sulfameth/Trimethoprim DS 800-160mg TAB PO SCH ×2 (08:09→20:35)
[2019-05-10] MEDS: Ferrous Sulfate 325 MG TAB PO SCH ×2 (08:09→17:04)
[2019-05-10] MEDS: FLUoxetine HCl 20 MG CAP PO SCH (08:09)
[2019-05-10] MEDS: Megestrol Acetate 800 MG/20 ML UDCUP PO SCH (08:13)
[2019-05-10] MEDS: Ascorbic Acid 500 mg Chewable Tablet PO SCH ×2 (08:15→20:34)
[2019-05-10] MEDS: Senokot S 8.6-50 MG TAB PO SCH ×2 (08:15→20:34)
[2019-05-10] MEDS: Polyethylene Glycol 3350 17 GM Packet PO SCH (08:15)
[2019-05-10] MEDS: traMADol HCl 50 MG TAB PO PRN (11:11)
--- NOTE | 2019-05-10 13:58 | PRG ---
DATE OF SERVICE: 05/10/2019 I saw Ms. Rey this morning at which time she was sleeping upon my arrival into her room. The family was at bedside and they provided most of the history. They state that the patient was doing well one day postoperative from her left hip surgery, however, over the last couple of days, she has been very fatigued and sleeping throughout most of the day. Family states that she has not been wanting to eat any food. On exam, the patient awakens to verbal stimulus and responds to questions appropriately. She is very somnolent and goes back to sleep when not stimulated. She appears to be moving extremities without difficulty, aside from minimal movement of her left lower extremity. She is able to wiggle her fingers and toes on her right foot. She has 4/5 strength in her bilateral upper extremities and right lower extremity. The patient appears very frail, cachetic, and weak. She is less alert than she was last time I saw her last week. The patient was able to have an MRI of the brain completed over the weekend on 05/08/2019, which shows a hyperintense lesion on T1 imaging that restrict the fusion in the left periventricular region. This characteristic favors potential lymphoma. Additionally, on MRI it was noted to be a right posterior occipital parietal subdural hematoma. The patient had a repeat head CT done yesterday 05/09/2019, which showed a stable right sided subdural hematoma. PLAN: I have discussed this case in detail and reviewed imaging with Dr. Sanders. Plan at this time will be to continue holding aspirin and blood thinners given the patient's subdural hematoma. We will continue to monitor her for this. The findings on MRI are interesting and favor [employer] lymphoma. We can discuss further with family tomorrow. Plan moving forward could be to consider performing a lumbar puncture to further analyze CSF. This is a 15-minute subsequent visit note in which greater than 50% of the time was spent in review of imaging, records, labs, evaluation of the patient, examination, and formulation of a plan. The remaining time was spent in counseling and coordination of care. Job ID: [id number]
--- NOTE | 2019-05-10 16:01 | PRG ---
DATE OF SERVICE: 05/10/2019 SUBJECTIVE: The patient was seen this morning lying in bed with no signs of acute distress. She is still very lethargic, but overall she has improved with her mentation since yesterday. She reports pain is well controlled. Daughter at bedside. We did discuss at length her medical condition and her poor prognosis and explained each individual acute on chronic condition as well as the overall picture and recommended hospice. The family was in agreement to hear more information about hospice. OBJECTIVE: VITAL SIGNS: Temperature 97.6, pulse 64, respirations 16, oxygen saturation 97% on room air, and blood pressure 135/73. GENERAL: Frail, elderly female, lying in bed with no signs of acute distress. PULMONARY: Equal chest rise and fall. Clear breath sounds bilaterally. No signs of acute respiratory distress. CARDIAC: Regular rate and rhythm. GI: Abdomen is soft, nontender, and nondistended. EXTREMITIES: 2+ pulses in all extremities. Gross motor and sensation intact. No significant swelling noted. NEUROLOGIC: GCS is 14. LABORATORY FINDINGS: White count 2.3, hemoglobin 9.3, hematocrit 28.1, and platelets 110. Sodium 135, potassium 3.6, chloride 108, bicarb 22, BUN 25, creatinine 0.92, glucose 94, phosphorus 2.5, and magnesium 2.2. DIAGNOSTIC FINDINGS: There are no new diagnostic findings to report. ASSESSMENT: 1. Status post fall one week before presentation. 2. Left femoral neck fracture, status post repair. 3. Tiny acute lacunar infarct. 4. Possible metastatic foci in the left parietal occipital lobe. 5. Left periventricular lesion concerning for central nervous system lymphoma. 6. Subacute small right subdural hematoma. 7. Acute kidney injury, resolved. 8. Urinary tract infection, uncomplicated. 9. Chronic pancytopenia. 10. History of ovarian cancer and dementia. 11. Physical deconditioning. 12. Failure to thrive. PLAN: We will continue the patient's current diet and pain regimen. Continue D5 half-normal saline at 20 an hour. The patient did receive 1 unit of packed red blood cells yesterday and incremented appropriately. Replace potassium phos today. We have asked case management and Palliative Care to see the patient for placement with a hospice care team. She will likely be discharged home with home hospice tomorrow. This patient was seen and examined by Dr. Sultana and myself this morning during rounds. Job ID: [id number]
--- NOTE | 2019-05-10 23:45 | PRG ---
DATE OF SERVICE: 05/10/2019 SUBJECTIVE: The patient was seen this evening during the evening rounds, resting comfortably. Staff reports the patient's GCS has been waxing and waning between 12 and 14 today. Palliative Care has been consulted as the patient has had very poor p.o. intake. The patient and family has agreed for discharge home with hospice care. OBJECTIVE: VITAL SIGNS: Stable, afebrile. GENERAL: Frail, elderly female, lying in hospital bed, resting comfortably. PULMONARY: Equal chest rise and fall, no respiratory distress. ASSESSMENT: 1. Status post fall one week ago before presentation. 2. Left femoral neck fracture, status post repair. 3. Tiny acute lacunar infarct. 4. Possible metastatic foci in the left parietal occipital lobe. 5. Left periventricular lesion concerning for central nervous system lymphoma. 6. subacute small right subdural hematoma. 7. Acute kidney injury, resolved. 8. Urinary tract infection, uncomplicated. 9. Chronic pancytopenia. 10. History of ovarian cancer and dementia. 11. Physical deconditioning. 12. Failure to thrive. PLAN: Continue comfort care and diet as tolerated. The patient is pending discharge home with hospice care. Job ID: [id number] [facility]
--- NOTE | 2019-05-11 09:04 | CT ---
Head CT without contrast 05/11/2019: COMPARISON: 05/09/2019 HISTORY: Fall, confusion TECHNIQUE: Axial CT imaging at 5 mm intervals from vertex through skull base without contrast FINDINGS: There is a stable nonspecific hyperdense abnormality within the periventricular white matte r adjacent to the frontal horn of the left lateral ventricle, better assessed on recent MRI. There is a subtle very small subdural hematoma in the right parietal region which does not appear to have changed when compared to the prior study performed 05/09/2019. Periventricular hypodensity noted, evidence of small vessel disease. The imaged paranasal sinuses and mastoid air cells appear we ll-aerated. No displaced calvarial fracture IMPRESSION: No significant interval change when compared to the 05/09/2019 exam. Stable nonspecific hyp erdense periventricular lesion adjacent to the frontal horn of left lateral ventricle. Stable subtle small right parietal subdural hematoma.
[2019-05-11] MEDS: Ascorbic Acid 500 mg Chewable Tablet PO SCH ×2 (09:35→21:07)
[2019-05-11] MEDS: Senokot S 8.6-50 MG TAB PO SCH ×2 (09:35→21:07)
[2019-05-11] MEDS: Ferrous Sulfate 325 MG TAB PO SCH ×2 (09:35→18:45)
[2019-05-11] MEDS: Megestrol Acetate 800 MG/20 ML UDCUP PO SCH (09:35)
[2019-05-11] MEDS: Sulfameth/Trimethoprim DS 800-160mg TAB PO SCH ×2 (09:35→21:07)
[2019-05-11] MEDS: FLUoxetine HCl 20 MG CAP PO SCH (09:35)
[2019-05-11] MEDS: Polyethylene Glycol 3350 17 GM Packet PO SCH (09:36)
--- NOTE | 2019-05-11 11:48 | PRG ---
DATE OF SERVICE: 05/11/2019 This is a 25 minutes subsequent visit note, in which 25 minutes were spent reviewing the imaging record, evaluation, examination of the patient, formulation of plan. Greater than 50% time was spent in counseling. SUBJECTIVE: Ms. Rey had confusion following her hip surgery, not unusual given her age, and an MRI was done as part of the plan for the left figueredo radiata lesion evaluation. This lesion remains obvious and is potentially [employer] lymphoma. The MRI also, however, demonstrated right posterior convexity subdural hematoma, likely related to her fall. There was also a small lacunar infarct in the left parietal lobe and enhancement of the left parieto-occipital lobe. Again, all of this makes me concerned about some sort of neoplastic process. There are some characteristics of the left figueredo radiata lesion as to a DVA. I have repeated a head CT and it demonstrates stability in the subdural hematoma and what I would like to do is initiate Lovenox prophylactically as she has a significant DVT risk. There are plans for likely procession to hospice care. We will arrange for an MRI of the brain and outpatient in 4 weeks to give her time to recover from this recent surgery before pursue anything neurosurgically. I should note, I would not recommend a lumbar puncture at this time because of the risk of increasing the subdural hematoma. Job ID: [id number]
[2019-05-11] MEDS: D5 1/2 NS w/20 mEq KCL 1,000 ML IV SCH (18:44)
[2019-05-11] MEDS ORDERED: Enoxaparin Sodium 40 MG/0.4 ML SYRINGE SC SCH (21:00)
--- NOTE | 2019-05-12 01:22 | PRG ---
DATE OF SERVICE: 05/12/2019 SUBJECTIVE: Ms. Rey is a 73-year-old female, status post ground level fall. She sustained left femoral neck fracture. She had some brain injury. She has a history of colon cancer, lung cancer, end stage in which the patient refused to eat. The patient has been refusing to eat and became very lethargic, but this morning she become more alert and awake. GCS 15. Her vital signs have been stable. However, she still tolerates very little fluid diet. The patient's family is considering either prison facility or hospice and home care. OBJECTIVE: GENERAL: The patient is lying in bed comfortable with no acute respiratory distress. VITAL SIGNS: Temperature 98.7, heart rate 79, respiratory rate 18, O2 saturation 97% on room air and blood pressure 128/74. LUNGS: Clear bilaterally. HEART: Regular rate and rhythm. ABDOMEN: Soft, nondistended. EXTREMITIES: Neurovascularly intact x4. Postop dressing clean, dry, intact. ASSESSMENT: 1. Status post ground level fall. 2. Left femoral neck fracture status post open reduction internal fixation of left femoral neck fracture. 3. Acute traumatic brain injury including right subdural hematoma and possible metastasis foci of left parieto-occipital lobe, acute kidney injury resolved, urinary tract infection, treated. 4. Chronic pancytopenia. 5. History of ovarian cancer and dementia. 6. Failure to thrive. PLAN: 1. Continue supportive care. 2. Continue pain control. 3. Dr. Sanders saw patient this morning. Dr. Perez is okay for patient placement either in prison facility or home with hospice. 4. Plan to see the patient in 1 month for investigation further on the brain foci abnormality. The patient's family had been talking with skilled nursing case manager and decide placement in prison facility. 5. Neurosurgery, Dr. Sanders is okay to start patient on Lovenox 40 mg every day for DVT prophylaxis. Job ID: [id number]
[2019-05-12] MEDS: D5 1/2 NS w/20 mEq KCL 1,000 ML IV SCH (05:39)
[2019-05-12] MEDS: Polyethylene Glycol 3350 17 GM Packet PO SCH (09:37)
[2019-05-12] MEDS: Ascorbic Acid 500 mg Chewable Tablet PO SCH (09:37)
[2019-05-12] MEDS: Megestrol Acetate 800 MG/20 ML UDCUP PO SCH (09:37)
[2019-05-12] MEDS: Ferrous Sulfate 325 MG TAB PO SCH (09:37)
[2019-05-12] MEDS: Senokot S 8.6-50 MG TAB PO SCH (09:37)
[2019-05-12] MEDS: FLUoxetine HCl 20 MG CAP PO SCH (09:38)
[2019-05-12 11:34] VITALS: TEMP 98
[2019-05-12 15:10] VITALS: BP 124/75
--- NOTE | 2019-05-13 15:24 | DIS ---
DATE OF ADMISSION: 05/06/2019 DATE OF DISCHARGE: 05/12/2019 ATTENDING PHYSICIAN: Dr. Sultana. CONSULTING PHYSICIANS: 1. Dr. Sanders, neurosurgeon. 2. Dr. Ba Blood, orthopedic surgeon. PROCEDURE PERFORMED: Left hip hemiarthroplasty, bipolar. ADMISSION DIAGNOSES: 1. Status post ground level fall. 2. Left fibular neck fracture, status post open reduction and internal fixation of left fibular neck fracture. 3. Acute traumatic brain injury including right subdural hematoma. 4. Multiple metastatic foci of left parieto-occipital lobe. 5. Acute kidney injury on chronic kidney injury. 6. History of ovarian cancer and dementia. 7. Failure to thrive. DISCHARGE DIAGNOSES: 1. Status post ground level fall. 2. Left fibular neck fracture, status post open reduction and internal fixation of left femoral neck fracture. 3. Acute traumatic injury including right subdural hematoma, stable. 4. Multiple foci metastasis lesion of parieto-occipital lobe. 5. Acute kidney injury on chronic kidney injury, improved. 6. History of ovarian cancer stage IV and dementia. 7. Failure to thrive. HOSPITAL COURSE: Ms. Rey is a 73-year-old female, status post ground level fall. She sustained left femoral neck fracture and brain injury in which she is GCS 15 and her mental status stable. She underwent ORIF of left hip fracture with Dr. Blood. Postop, the patient is stable. Vital signs stable. She is able to tolerate with some diet. Regard to multiple foci lesion on the brain, Dr. Sanders want to see her in one month to make a definitive diagnosis using lumbar drainage and cytology. The patient limited with Physical Therapy due to deconditioning and dementia. The patient has been treated with Lovenox for DVT prophylaxis, approved by Dr. Sanders. We will plan to placement in a [facility] home facility. PHYSICAL EXAMINATION: GENERAL: The patient is lying in the bed, comfortable with no acute respiratory distress. SKIN: Pale. VITAL SIGNS: Temperature 98.7, heart rate 79, respiratory rate 18, and O2 saturation 97% on room air, and blood pressure 120/70. LUNGS: Clear bilaterally. HEART: Regular rate and rhythm. ABDOMEN: Soft and nondistended. EXTREMITIES: Neurovascularly intact x4. Postoperative dressing dry, clean, and intact. DISCHARGE DISPOSITION: senior care home facility. DISCHARGE CONDITION: Poor. DISCHARGE INSTRUCTIONS: The patient is to take medication as directed. The patient is to work with PT/OT. We will continue to encourage diet intake. The patient is currently on DNR, signed by Dr. Sultana. Discharge medications include vitamin C, Lovenox, ferrous sulfate, Prozac, Megestrol, MiraLAX, tramadol, .. Job ID: [id number]
== END 2019-05-12 17:37 | DRG 956 ==
LOC: ERS 11:23 → SURG A 13:09
PROVIDERS: ADMIT Surgery; ATTEND Surgery
PROC: 0SRB0JA Replacement of Left Hip Joint with Synthetic Substitute, Uncemented, Open Approach (ICD-10-PCS; principal; 2019-05-06)
DX: S72.002A Fracture of unspecified part of neck of left femur, initial encounter for closed fracture (principal); S06.5X0A Traumatic subdural hemorrhage without loss of consciousness, initial encounter; I63.81 Other cerebral infarction due to occlusion or stenosis of small artery; E87.1 Hypo-osmolality and hyponatremia; D61.818 Other pancytopenia; N17.9 Acute kidney failure, unspecified; N39.0 Urinary tract infection, site not specified; C79.31 Secondary malignant neoplasm of brain; Z66 Do not resuscitate; F32.9 Major depressive disorder, single episode, unspecified; W19.XXXA Unspecified fall, initial encounter; F03.90 Unspecified dementia, unspecified severity, without behavioral disturbance, psychotic disturbance, mood disturbance, and anxiety; Z96.651 Presence of right artificial knee joint; E83.39 Other disorders of phosphorus metabolism; D64.9 Anemia, unspecified; B96.20 Unspecified Escherichia coli [E. coli] as the cause of diseases classified elsewhere; R62.7 Adult failure to thrive; Z85.43 Personal history of malignant neoplasm of ovary; Z90.710 Acquired absence of both cervix and uterus; Z79.899 Other long term (current) drug therapy; Z68.24 Body mass index [BMI] 24.0-24.9, adult
CPT/HCPCS: 36415; 36416; 36430; 62272; 70450; 70553; 71045; 72170; 80048; 80053; 80061; 81003; 81015; 83735; 84100; 85025; 85610; 85730; 86850; 86900; 86901; 87077; 87086; 87186; 93005; 93306; 96374; G0390; J0690; J1100; J1650; J2001; J2270; J2405; J2795; J3010; J3475; J7050; P9016; S0028